=== PATIENT | female | born 1945 | race American Indian/Alaskan Native ===

== ENCOUNTER 2016-07-08 13:21 | Outpatient (CLI) | payer MEDICARE ==
--- NOTE | 2016-07-08 13:49 | Mammography Report ---
LEFT DIGITAL DIAGNOSTIC MAMMOGRAM : 07/08/16 13:21:00 CLINICAL: Recalled for calcifications. COMPARISON:05/26/16 FINDINGS: ML and CC magnification views demonstrate a cluster of at least six calcifications in the upper-outer quadrant. The calcifications are varying shape and size. No layering. No associated mass or architectural distortion. IMPRESSION: Probably benign calcifications. BI-RADS CATEGORY: 3 -- Probably Benign RECOMMENDATION: 6 month follow-up magnification views of the right breast calcifications. ACR BI-RADS MAMMOGRAPHIC CODES: 0 = Needs additional imaging evaluation; 1 = Negative; 2 = Benign; 3 = Probably benign; 4 = Suspicious; 5 = Malignant; 6 = Known biopsy-proven malignancy COMMENT: 1. Dense breast tissue, i.e., adenosis, fibrocystic changes, etc., may obscure an underlying neoplasm. 2. Approximately 10% of cancers are not detected with mammography. 3. A negative mammography report should not delay biopsy if a clinically suspicious mass is present. COMMENT: Patient follow-up letters are generated by our [employer] application.
== END 2016-07-08 13:22 | disposition home or self-care (01) ==
LOC: SPVWC 13:21
PROVIDERS: ATTEND Internal Medicine
DX: R92.1 Mammographic calcification found on diagnostic imaging of breast (principal)
CPT/HCPCS: G0206-LT

== ENCOUNTER 2017-08-31 14:12 | Outpatient (CLI) | payer MEDICARE ==
--- NOTE | 2017-09-01 15:52 | Mammography Report ---
BILATERAL DIGITAL SCREENING MAMMOGRAM with CAD: 08/31/17 14:12:00 CLINICAL: Routine screening. COMPARISON:05/26/16 bilateral mammogram and 07/08/16 left mammogram. FINDINGS: The breasts are mostly fatty. Scattered bilateral benign calcifications. No mass, architectural distortion or suspicious calcifications. IMPRESSION: No mammographic evidence of malignancy. BI-RADS CATEGORY: 2 -- Benign RECOMMENDATION: Routine mammographic screening in one year. COMMENT: Patient follow-up letters are generated by our [employer] application.
== END 2017-08-31 14:13 | disposition home or self-care (01) ==
LOC: SPVWC 14:12
PROVIDERS: ATTEND Internal Medicine
DX: Z12.31 Encounter for screening mammogram for malignant neoplasm of breast (principal)
CPT/HCPCS: 77067